=== PATIENT | female | born 1945 | race Caucasian/White ===

== ENCOUNTER 2024-07-19 11:31 | Emergency (ER) | payer OTHER ==
[2024-07-19 11:40] VITALS: BP 141/66; PULSE 63; RESP 20; TEMP 98; BMI 24.2
== END 2024-07-19 12:50 | disposition home or self-care (01) ==
LOC: JERFT 11:31
DX: L03.011 Cellulitis of right finger (principal); M79.644 Pain in right finger(s)
CPT/HCPCS: 99283-25